=== PATIENT | female | born 1970 | race Caucasian/White ===

== ENCOUNTER 2017-03-23 10:12 | Inpatient (IN) ==
[2017-03-23] MEDS ORDERED: NITROGLYCERIN SL 0.4 MG TABLET SL PRN (10:49)
[2017-03-23] MEDS ORDERED: ASPIRIN 325 MG TABLET PO STA (10:49)
[2017-03-23] MEDS ORDERED: ENOXAPARIN 100 MG/ML SYRINGE SUBCUT STA (10:49)
[2017-03-23] MEDS ORDERED: NITROGLYCERIN 2% OINT 1 INCH/GM PACK TOP STA (10:49)
--- NOTE | 2017-03-23 10:52 | EKG Report ---
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
--- NOTE | 2017-03-23 10:56 | Emergency Department Note ---
Enrrique Frazier Brooke, am scribing for, and in the presence of, Tomy Felix MD 10:54 . Elvira Frazier James D, MD, personally performed the services described in this documentation, ascribed by Shraddha Osuna in my presence, and it is both accurate and complete . Arrival - Arrival Chief Complaint: Chest Pain Stated Complaint: chest pain ED Nursing Triage Note: pt c/o of chest tightness and heart flutters that started this morning. Having so pain in jaw that radiates to left arm. She was seen by her production planning supervisor yesterday and has plans for a holter monitor soon. Denies nausea/vomiting. Mode of Arrival: Stretcher Limitations: No Limitations Source: Patient, RN Notes Reviewed Time Seen by Provider: 03/23/17 10:44 - History of Present Illness HPI Narrative: Patient is a 46 year old female who presents to the ED with c/o chest tightness and palpitations. She says she was completely fine and then her heart started fluttering. She say she has had the fluttering, in the past, and says it usually goes away within a few minutes. However, after the first episode of fluttering, she says it started fluttering again. Patient says the chest tightness is located on the left side. The chest tightness is not worsened by exertion. She was given Nitro and she says it relieved the chest tightness but she still feels some tightness in her jaw and left arm. She also complains of nausea but denies any diaphoresis or calf pain. Patient's PCP referred Patient to a Tin Pot Operator, which she saw yesterday, for an abnormal EKG. She says the Tin Pot Operator is going to set up an appointment for an echocardiogram and stress test. She says the Tin Pot Operator mentioned putting her on a monitor due to a "slow heartbeat." Patient is a smoker and smokes about a pack of cigarettes a day. Onset (ago): unknown Allergies/Adverse Reactions: Allergies Allergy/AdvReac Type Severity Reaction Status Date / Time latex Allergy ANAPHYLAXIS Verified 03/23/17 11:09 Home Medications: Home Medications Medication Instructions Recorded Confirmed Type Aspirin EC Tab 81 mg PO DAILY 03/23/17 03/23/17 History Buspirone HCl 10 mg PO BID 03/23/17 03/23/17 History Fluoxetine HCl 10 mg PO DAILY 03/23/17 03/23/17 History hydroCHLOROthiazide 12.5 mg PO DAILY 03/23/17 03/23/17 History [Hydrochlorothiazide] Review of System - Review of System 12 point system: reviewed and no additional remarkable complaints except as stated - Review of System Constitutional: Absent: diaphoresis, fever Respiratory: Absent: respiratory distress Cardiovascular: Present: chest pain (tightness), palpitations Gastrointestinal: Present: nausea Skin: Absent: rash Exam Vital Signs: Vital Signs Temperature 98.2 F 03/23/17 11:17 Pulse Rate 68 03/23/17 11:17 Respiratory Rate 16 03/23/17 11:17 Blood Pressure 131/77 03/23/17 11:17 O2 Sat by Pulse Oximetry 100 03/23/17 10:34 GENERAL: This is a well-nourished well-developed white female in no apparent distress. VITAL SIGNS: Reviewed HEENT: Head is atraumatic and normocephalic. Pupils are equal round react to light. Extraocular movements are intact. Oropharynx is benign with moist mucous membranes. NECK: Neck is soft and supple without tenderness. There are no masses. There is no lymphadenopathy. LUNGS: Lungs are clear to auscultation. Chest rises symmetrically. There is no chest wall tenderness. CV: Heart is regular rate and rhythm without murmurs rubs or gallops. ABDOMEN: Abdomen is soft, nontender to palpation. There are no abdominal abnormal masses palpated. There is no organomegaly. Bowel sounds are present and active. SKIN: Skin is warm and dry. No rash. EXTREMITIES: Patient has full range of motion without tenderness. There is no pedal edema. NEUROLOGIC: Awake alert and oriented 4. Cranial nerves II through XII are grossly intact. Motor is 5 over 5 in all extremities bilaterally. Course - Consultations Consultation #1: Discussed with hospitalist. Patient will be admitted to their service. Time: 12:14 Results - Labs CBC & BMP: 03/23/17 10:29 03/23/17 10:29 Lab Results: I have reviewed the patients labs - EKG EKG results: interpreted by ERMD - Impressions EKG: Normal sinus rhythm with a rate of 62, normal ST-T waves, normal axis. - Diagnostic Findings Procedure: Chest x-ray: image reviewed by me (No pleural effusions, no infiltrates.) Disposition Clinical Impression: Chest pain Case discussed with: patient Condition: Stable
[2017-03-23 10:57] LABS: Basophils % 0.4 % (0.0-0.8); Eosinophils # 0.1 10*3/uL (0.0-0.87); Eosinophils % 1.1 % (0.00-10.9); Hematocrit 44.2 VOL% (35.7-47.0); Hemoglobin 15.2 GM/DL (12.0-16.0); Immature Granulocytes % 0.3 %; Immature Granulocytes Absolute 0.02 #; Lymphocytes # 1.4 10*3/uL (1.4-4.0); Lymphocytes % 19.8 % (21.3-54.2); Mean Corpuscular HGB Conc 34.4 GM/DL (32-36); Mean Corpuscular Hemoglobin 32 PG (27-34); Mean Platelet Volume 11.3 FL (9.6-12.0); Monocytes # 0.6 10*3/uL (0.11-0.8); Monocytes % 8.3 % (1.7-12.7); Neutrophils # 5.1 10*3/uL (1.4-7.4); Neutrophils % 70.1 % (38.7-73.9); Platelet Count 223 T/CUMM (130-400); Red Cell Distribution Width 11.9 % (9.3-17.3); White Blood Count 7.2 T/CUMM (4-12)
[2017-03-23] MEDS ORDERED: ENOXAPARIN 100 MG/ML SYRINGE SUBCUT ONE (10:58)
[2017-03-23] MEDS ORDERED: NITROGLYCERIN 2% OINT 1 INCH/GM PACK TOP ONE (10:58)
[2017-03-23] MEDS ORDERED: ASPIRIN 325 MG TABLET ONE (10:58)
[2017-03-23 11:02] LABS: Partial Thromboplastin Time 29.6 SECS (0-40)
--- NOTE | 2017-03-23 11:10 | XRay Report ---
XR chest 2V Date: 03/23/2017 10:49 AM History: Chest pain Comparison: None Technique: PA and lateral chest Findings: The heart is normal in size. Calcified granulomatous/nodes with no definite acute parenchymal findings. Minimal degenerative changes. Impression: No acute cardiopulmonary pathology identified. Old healed granulomatous disease. PROCEDURE INTERPRETED AT [facility] DEPARTMENT OF RADIOLOGY Final Report Signed by: Dr. Colleen Sands
[2017-03-23 11:20] LABS: Barbiturates Screen,Urine Negative (Negative); Benzodiazepines Screen,Urine Negative (Negative); Cannabinoid Screen,Urine Negative (Negative); Opiate Screen,Urine Negative (Negative); Phencyclidine Screen,Urine Negative (Negative)
[2017-03-23 11:21] LABS: Alanine Aminotransferase 27 U/L (13-56); Albumin 3.7 G/DL (3.4-5.0); Alkaline Phosphatase 70 U/L (45-117); Aspartate Amino Transferase 18 U/L (0-37); Bilirubin,Total < 0.39 MG/DL (0.2-1.0); Blood Urea Nitrogen 11 MG/DL (7-18); Glucose 86 MG/DL (74-106); Osmolality,Calculated 276.4 MOS/KG (273-304); Potassium 3.7 MMOL/L (3.5-5.1); Sodium 140 MMOL/L (136-145); Total Protein 7.1 G/DL (6.4-8.3)
--- NOTE | 2017-03-23 14:04 | EKG Report ---
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
[2017-03-23] MEDS ORDERED: ALUM/MAG/SIMETH/LIDO VISC 1:1 30 ML BOTTLE PO ONE (14:34)
--- NOTE | 2017-03-23 15:13 | EKG Report ---
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
[2017-03-23 15:18] LABS: Free T4 (Free Thyroxine) 1.03 NG/DL (0.76-1.46); Thyroid Stimulating Hormone 2.22 uIU/ml (0.358-3.74)
[2017-03-23] MEDS: PANTOPRAZOLE 40 MG TABLET PO SCH (15:47)
[2017-03-23] MEDS: NICOTINE 21 MG/24 HR PATCH TRANSDERM SCH (15:48)
--- NOTE | 2017-03-23 15:48 | Hospitalist History & Physical ---
<Umer Tamayo - Last Filed: 03/23/17 16:25> Assessment and Plan (1) Chest pain Status: Acute Assessment and plan: Will conduct cardiac work-up. we will consult cardiology to see since the patient was already seen by one for evaluation Current Visit: Yes (2) Nicotine addiction Status: Acute Assessment and plan: Discussed in great detail the importance of smoking cessation. Patient acknowledges the need to stop; however does not want to at this time. Will offer nicotine patch for hospital stay. Current Visit: Yes History of Present Illness Chief complaint: chest pain History of present illness: This is a very pleasant 46 year old female that presented to the ED at [facility] this afternoon for evaluation of chest tightness, tightness, and palpitations. The patient has a medical history significant for hypertension, nicotine addition, anxiety, and depression. The patient reported that she was going about her day and was completely fine when the onset of the above symptoms started. She reports incidents similar in nature; however they generally resolved moments after started; however this incident lasted started immediately after subsiding. In addition, she reports chest and jaw discomfort. She was recently seen by her PCP for a similar complaint and was referred to a estate manager. She was seen on yesterday and told that she would be scheduled for an echocardiogram and stress test at some point and time.She was evaluated and given nitroglycerin with minimal relief from the jaw and chest pain. Labs and chest radiograph were essentially unremarkable. Due to her presenting complaint and known risk factors; after brief discussion with Dr. Felix and Rhea, the patient will be admitted to the hospitalist service for continuation of care. Home Medications Medication Instructions Recorded Confirmed Type Aspirin EC Tab 81 mg PO DAILY@0700 03/23/17 03/23/17 History Buspirone HCl 10 mg PO 0700,1900 PRN 03/23/17 03/23/17 History Fluoxetine HCl 10 mg PO DAILY@0700 03/23/17 03/23/17 History hydroCHLOROthiazide 12.5 mg PO DAILY@0700 03/23/17 03/23/17 History [Hydrochlorothiazide] Allergies Allergy/AdvReac Type Severity Reaction Status Date / Time latex Allergy ANAPHYLAXIS Verified 03/23/17 11:09 Medical,Surgical,& Family Hx - Medical History Cardio: History of: Aneurysm (palpatations), Hypertension Psychological: History of: Anxiety Disorders, Depression - Family History Family History: Reports;: Family Hypertension - Social History Smoking Status: Current every day smoker Frequency of Alcohol Use: None Type of Drug Use: None 12 point system: reviewed and no additional remarkable complaints except as stated Exam - Constitutional Vitals: Period Temp Pulse Resp BP Sys/Duff Pulse Ox Last 24 Hr 98 F 59-60 17-18 96-121/58-74 97-97 General appearance: normal weight, no acute distress - Head Head exam: Present: normal inspection, normocephalic, atraumatic - Eye Eye exam: Present: EOMI. Absent: conjunctival injection Pupils: Present: MP, normal accommodation - ENT ENT exam: Present: normal exam, normal external ear exam, normal oropharynx - Neck Neck exam: Present: normal inspection. Absent: lymphadenopathy, meningismus, tenderness, thyromegaly - Respiratory Respiratory exam: Present: clear to auscultation bilaterally. Absent: rales, rhonchi, stridor, wheezes - Cardiovascular Cardiovascular exam: Present: bradycardia. Absent: carotid bruit, diastolic murmur, gallop, irregular rhythm, JVD, rubs, systolic murmur - GI/Abdominal GI/Abdominal exam: Present: normal bowel sounds, soft. Absent: distended, firm , guarding, mass, tenderness - Extremities Exam Extremities exam: Present: normal inspection, normal capillary refill, full ROM. Absent: calf tenderness, edema - Back Exam Back exam: Present: normal inspection - Neurological Exam Neurological exam: Present: alert, oriented X3, CN II-XII intact - Psychiatric Psychiatric exam: Present: flat affect - Skin Skin exam: Present: normal color, warm, dry Results - Labs CBC & BMP: 03/23/17 10:29 03/23/17 10:29 Lab Results: I have reviewed the past 24 hour labs <Eleonora Rolon - Last Filed: 03/23/17 16:56> History of Present Illness History of present illness: Ms. Nix is a 46 year old female with a history of HTN who is here for chest pain and flutter. She had an Echo and Cardiology consult set up for Wednesday next week prior to this event. Telemetry cardiac enzymes TSH, T4, A1c, Lipids Nicpotine patch, UA Echo, Cardiology consult ASA, lovenox. Exam - Constitutional Vitals: Period Temp Pulse Resp BP Sys/Duff Pulse Ox Last 24 Hr 98 F-98.4 F 59-63 17-18 96-121/58-74 97-98 Results - Labs CBC & BMP: 03/23/17 10:29 03/23/17 10:29
--- NOTE | 2017-03-23 17:59 | ECHO Report ---
[facility] Exam Date: 03/23/2017 16:49 Referring Physician: Technologist: Carolyne Miranda VARUN Age: 46 Ht (in): 64 Wt (lb): 152 Gender: F Exam Location: Indications: BP: 113 / 70 HR: 63 Rhythm: Sinus Technical Quality: Fair IMPRESSIONS Normal left ventricular size, systolic function and wall thickness, with no regional wall motion abnormalities. EF 60 %. Normal right ventricular size and systolic function. Normal right atrial size. Normal left atrial size. No mitral valve regurgitation. The aortic valve is trileaflet and has normal motion. No aortic valve regurgitation. Mild tricuspid valve regurgitation. PAP30 mmHg. Pulmonic valve not well visualized. No pericardial effusion. Normal aorta. MEASUREMENTS (Male / Female) Normal Values FINDINGS Left Ventricle Normal left ventricular size, systolic function and wall thickness, with no regional wall motion abnormalities. EF 60 %. Right Ventricle Normal right ventricular size and systolic function. Right Atrium Normal right atrial size. Left Atrium Normal left atrial size. Mitral Valve Morphologically normal mitral valve. No mitral valve regurgitation. Aortic Valve The aortic valve is trileaflet and has normal motion. No aortic valve regurgitation. Tricuspid Valve Morphologically normal tricuspid valve. Mild tricuspid valve regurgitation. PAP30 mmHg. Pulmonic Valve Pulmonic valve not well visualized. Pericardium No pericardial effusion. Aorta Normal aorta. Kirby Monroy (Electronically Signed) Final Date: 23 Mar 2017 17:58
[2017-03-23] MEDS: ENOXAPARIN 40 MG/0.4 ML SYRINGE SUBCUT SCH (21:50)
[2017-03-23] MEDS: busPIRone 10 MG TABLET PO SCH (21:50)
[2017-03-24 08:08] LABS: Basophils % 0.6 % (0.0-0.8); Eosinophils # 0.1 10*3/uL (0.0-0.87); Eosinophils % 2.4 % (0.00-10.9); Hematocrit 43.6 VOL% (35.7-47.0); Hemoglobin 14.6 GM/DL (12.0-16.0); Immature Granulocytes % 0.4 %; Immature Granulocytes Absolute 0.02 #; Lymphocytes # 1.9 10*3/uL (1.4-4.0); Lymphocytes % 37.1 % (21.3-54.2); Mean Corpuscular HGB Conc 33.5 GM/DL (32-36); Mean Corpuscular Hemoglobin 32 PG (27-34); Mean Corpuscular Volume 94.6 FL (87-102); Mean Platelet Volume 11.3 FL (9.6-12.0); Monocytes # 0.5 10*3/uL (0.11-0.8); Monocytes % 9.9 % (1.7-12.7); Neutrophils # 2.5 10*3/uL (1.4-7.4); Neutrophils % 49.6 % (38.7-73.9); Platelet Count 213 T/CUMM (130-400); Red Blood Count 4.61 MC/CUMM (3.8-5.5); Red Cell Distribution Width 12.2 % (9.3-17.3); White Blood Count 5.1 T/CUMM (4-12)
[2017-03-24 08:34] LABS: Alanine Aminotransferase 24 U/L (13-56); Albumin 3.2 G/DL (3.4-5.0); Alkaline Phosphatase 57 U/L (45-117); Aspartate Amino Transferase 17 U/L (0-37); Bilirubin,Total < 0.39 MG/DL (0.2-1.0); Blood Urea Nitrogen 13 MG/DL (7-18); Calcium 8.7 MG/DL (8.5-10.1); Glucose 86 MG/DL (74-106); Magnesium 2.1 MG/DL (1.8-2.4); Osmolality,Calculated 277.4 MOS/KG (273-304); Phosphorous 2.7 MG/DL (2.5-4.9); Potassium 4.2 MMOL/L (3.5-5.1); Sodium 140 MMOL/L (136-145); Total Protein 6.2 G/DL (6.4-8.3)
--- NOTE | 2017-03-24 09:05 | Hospitalist Progress Note ---
<Umer Tamayo - Last Filed: 03/24/17 09:03> Assessment and Plan (1) Chest pain Status: Acute Assessment and plan: Will conduct cardiac work-up. we will consult cardiology to see since the patient was already seen by one for evaluation. 03/24-Cardiology to assess this AM; possible heart cath this AM. Current Visit: Yes (2) Nicotine addiction Status: Acute Assessment and plan: Discussed in great detail the importance of smoking cessation. Patient acknowledges the need to stop; however does not want to at this time. Will offer nicotine patch for hospital stay. Current Visit: Yes Hospitalist: Subjective Interval history: Patient seen and examined. Reports several episodes of chest pain on last night. NPO pending Cardiology evaluation. Exam - Constitutional Vitals: Period Temp Pulse Resp BP Sys/Duff Pulse Ox Last 24 Hr 96.5 F-98.4 F 59-68 17-20 96-127/58-75 97-99 General appearance: normal weight, no acute distress - Head Head exam: Present: normal inspection, normocephalic, atraumatic - Eye Eye exam: Present: EOMI. Absent: conjunctival injection, nystagmus Pupils: Present: MP, normal accommodation. Absent: constricted - ENT ENT exam: Present: normal exam, normal external ear exam, normal oropharynx - Neck Neck exam: Present: normal inspection. Absent: lymphadenopathy, meningismus, tenderness, thyromegaly - Respiratory Respiratory exam: Present: clear to auscultation bilaterally. Absent: rales, rhonchi, stridor, wheezes - Cardiovascular Cardiovascular exam: Present: regular rate and rhythm. Absent: carotid bruit, diastolic murmur, gallop, JVD, rubs, systolic murmur - GI/Abdominal GI/Abdominal exam: Present: normal bowel sounds, soft. Absent: distended, firm , guarding - Extremities Exam Extremities exam: Present: normal inspection, normal capillary refill, full ROM , edema. Absent: calf tenderness - Back Exam Back exam: Present: normal inspection - Neurological Exam Neurological exam: Present: alert, oriented X3, CN II-XII intact - Psychiatric Psychiatric exam: Present: normal affect, normal mood - Skin Skin exam: Present: normal color, warm, dry Results - Labs CBC & BMP: 03/24/17 07:49 03/24/17 07:49 Lab Results: I have reviewed the past 24 hour labs <Sam Hollins - Last Filed: 03/24/17 12:29> Hospitalist: Subjective Interval history: Patient seen and examined independently of BRIGETTE Tamayo, agree with assessment and plan as documented. Reports chest pain yesterday evening relieved with nitro. Cardiology to evaluate today. Exam - Constitutional Vitals: Period Temp Pulse Resp BP Sys/Duff Pulse Ox Last 24 Hr 96.5 F-98.4 F 59-73 17-20 96-130/58-75 97-99 Results - Labs CBC & BMP: 03/24/17 07:49 03/24/17 07:49
[2017-03-24] MEDS: NICOTINE 21 MG/24 HR PATCH TRANSDERM SCH (09:44)
[2017-03-24] MEDS: hydroCHLOROthiazide 12.5 MG CAPSULE PO SCH (09:44)
[2017-03-24] MEDS: busPIRone 10 MG TABLET PO SCH ×2 (09:44→21:14)
[2017-03-24] MEDS: FLUoxetine 10 MG CAPSULE PO SCH (09:44)
[2017-03-24] MEDS: ASPIRIN EC 81 MG TABLET PO SCH (09:44)
[2017-03-24] MEDS: PANTOPRAZOLE 40 MG TABLET PO SCH (09:44)
[2017-03-24 12:29] LABS: VLDL CHOLESTEROL 9.6 MG/DL
--- NOTE | 2017-03-24 14:03 | Event Note ---
Underwent cardiolyte exercise stress testing this morning without complaints of chest pain, heaviness, tightness, or shortness of breath. No syncope or presyncope. Full Marcio protocol met with THR achieved. Clinically and electrically negative stress test. Less than 1mm ST depression noted anteriorly with resolution during recovery phase. Blood pressure remained stable throughout procedure. Now, patient will transition to nuclear medicine for final scan. Dr. White to read, interpreted and advise.
--- NOTE | 2017-03-24 16:13 | Cardiology Consult Note ---
Nik Frazier Vanessa, RN, am scribing for, and in the presence of, Alvarado White MD 16:13. 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 CLIVE TOM S, [place]) PCP: ANNA GLASS ([place]) Ms. Nix is a 46 year old white female not routinely followed by cardiology. Risk factors include: Hypertension, tobaccoism, and positive family history. Past medical history also includes anxiety and depression. Patient presented to [facility] the afternoon of 03/23 complaining of palpitations and chest tightness. No associated shortness of breath, N/V, diaphoresis. EKG negative for acute ischemic finding, chest x-ray without acute process, and lab work revealed negative cardiac enzymes. Patient was admitted to telemetry per hospital medicine for further evaluation and treatment. Cardiology consulted for evaluation also. Patient was recently evaluated by [employer] in [place], and she tells me she sought treatment because she noticed an increase in swelling of her legs and felt the left leg to be more swollen on the right leg. An EKG was obtained at that visit , she was reportedly told it was abnormal, and was referred to a curriculum writer. Patient was evaluated by curriculum writer in [place] on 03/22, and patient reports she was told she would be set up for echocardiogram and/or stress testing. She also reports she was told by the curriculum writer that her heartbeat was regular but "slow" and may require holter monitoring in the future. Patient reports she has been experiencing "heart fluttering" for the past 2-3 years, but she feels it is happening more frequently now. Reports that yesterday she was in her usual state of health and was carrying on a conversation with someone when she felt sudden onset of heart fluttering that resolved in approximately 1 minute, but a few minutes later heart fluttering returned. Reports that this episode lasted for approximately 3 minutes, and she had some chest pressure with some pain in the left side of her neck. Reports she does experience some shortness of breath with this at times. There were no aggravating or alleviating factors. Patient describes her chest pressure and palpitations as "feels like all the blood in my heart is stopped up for a minute and then it finally opens up and goes to my head." She does admit to smoking cigarettes, 1 pack per day, and at this time she is not interested in quitting. Echocardiogram with normal LV function and ejection fraction 60%, no significant valvular disease, mild TR with PA pressure 30 mmHg. Patient describes palpitations. Her noninvasive evaluation is negative for evidence of significant organic heart abnormality. our plan will be to discharge her with a Holter monitor to return for review. CC: Sam Hollins MD - Home Medications and Allergies Home Medications: Home Medications Medication Instructions Recorded Confirmed Type Aspirin EC Tab 81 mg PO DAILY@0700 03/23/17 03/23/17 History Buspirone HCl 10 mg PO 0700,1900 PRN 03/23/17 03/23/17 History Fluoxetine HCl 10 mg PO DAILY@0700 03/23/17 03/23/17 History hydroCHLOROthiazide 12.5 mg PO DAILY@0700 03/23/17 03/23/17 History [Hydrochlorothiazide] Allergies/Adverse Reactions: Allergies Allergy/AdvReac Type Severity Reaction Status Date / Time latex Allergy ANAPHYLAXIS Verified 03/23/17 11:09 - Constitutional Constitutional: Present: as per HPI - EENT Eyes: Present: as per HPI Ears: Present: as per HPI - Cardiovascular Cardiovascular: Present: as per HPI - Respiratory Respiratory: Present: as per HPI - Gastrointestinal Gastrointestinal: Present: as per HPI - Genitourinary Genitourinary: Present: as per HPI - Musculoskeletal Musculoskeletal: Present: as per HPI - Neurological Neurological: Present: as per HPI - Psychiatric Psychiatric: Present: as per HPI - Endocrine Endocrine: Present: as per HPI - Hematologic/Lymphatic Hematologic/Lymphatic: Present: as per HPI Medical,Surgical,& Family Hx - Medical History Cardio: History of: Aneurysm (palpatations), Hypertension No history of: CHF, CAD, [place], Pacemaker, PVD, Valvular Heart Disease Psychological: History of: Anxiety Disorders, Depression Neurology: No history of: Seizures, TIA Endocrine: No history of: Diabetes Mellitus (IDDM), Diabetes Mellitus (NIDDM), Dyslipidemia, Thyroid Disorder Respiratory: No history of: Bronchitis, COPD, Obstructive Sleep Apnea, Pulmonary Hypertension Renal: No history of: Renal Problems Gastrointestinal: No history of: Gastrointestinal Bleed Hematology: No history of: Anemia Other: No history of: Cancer - Surgical History Cardiac Surgeries: Patient Denies: Cardiac Catheterization, Cardiac Surgery, Internal Defibrillator - Family History Family History: Reports;: Family Heart Disease, Family Hypertension - Social History Smoking Status: Current every day smoker Time spent discussing smoking cessation with patient: more than 10 minutes Frequency of Alcohol Use: None Type of Drug Use: None Marital Status: Lives With:: Spouse Functional capacity: independent ambulation Physical Examination Vital Signs Temp Pulse Resp BP Pulse Ox 98.2 F 68 16 131/77 100 03/23/17 10:34 03/23/17 10:34 03/23/17 10:34 03/23/17 10:34 03/23/17 10:34 General: Present: Appears Well, No Apparent Distress HEENT: Present: Normocephaly, Mucus Membranes Moist. Absent: Pallor, Oral Lesions Neck: Present: Supple Neck, Midline Trachea, No JVD/HJR, No Bruit Cardiac: Present: Reg Rate and Rhythm. Absent: Systolic Murmur Lungs: Present: Clear Ascult./Percussion, No Wheeze, Rales, Rhonchi. Absent: Oxygen Neuro: Present: Grossly Intact. Absent: Numbness, Tingling, Resting Tremor, Essential Tremor Abdomen: Present: Soft, Active Bowel Sounds, No Masses, No Pulsations/Bruits. Absent: Ascites, Tender, Firm Skin: Present: Clear. Absent: Rash, Suspicious Lesions Musculoskeletal: Present: No Fluid Collection, Normal Range of Motion Extremities: Present: No Clubbing, No Cyanosis, Normal Upper Extr. Pulses (3+ bilaterally), Normal Lower Extr. Pulses (3+ bilaterally), Edema (Trace pretibial ), Capillary Refill (Normal) Result/EKG - Labs CBC & BMP: 03/24/17 07:49 03/24/17 07:49 Lab Results: I have reviewed the past 24 hour labs Labs: Laboratory Results - last 24 hr 03/23/17 03/23/17 03/23/17 14:12 14:12 15:19 WBC RBC Hgb Hct MCV MCH MCHC RDW Plt Count MPV Neut % (Auto) Lymph % (Auto) Teller % (Auto) Eos % (Auto) Baso % (Auto) Neut # (Auto) Lymph # (Auto) Teller # (Auto) Eos # (Auto) Baso # (Auto) Immature Gran % Nucleated RBC % Immature Gran # Nucleated RBCs # D-Dimer, Quantitative <= 0.5 Sodium Potassium Chloride Carbon Dioxide Anion Gap BUN Creatinine GFR Calculation BUN/Creatinine Ratio Glucose Calculated Osmolality Calcium Phosphorus Magnesium Total Bilirubin AST ALT Alkaline Phosphatase Troponin I < 0.015 Total Protein Albumin Globulin Albumin/Globulin Ratio Free T4 1.03 TSH 3rd Generation 2.220 03/23/17 03/24/17 03/24/17 17:04 07:49 07:49 WBC 5.1 RBC 4.61 Hgb 14.6 Hct 43.6 MCV 94.6 MCH 32 MCHC 33.5 RDW 12.2 Plt Count 213 MPV 11.3 Neut % (Auto) 49.6 Lymph % (Auto) 37.1 Teller % (Auto) 9.9 Eos % (Auto) 2.4 Baso % (Auto) 0.6 Neut # (Auto) 2.5 Lymph # (Auto) 1.9 Teller # (Auto) 0.5 Eos # (Auto) 0.1 Baso # (Auto) 0.0 Immature Gran % 0.4 Nucleated RBC % 0.0 Immature Gran # 0.02 Nucleated RBCs # 0.00 D-Dimer, Quantitative Sodium 140 Potassium 4.2 Chloride 106 Carbon Dioxide 29 Anion Gap 9.2 BUN 13 Creatinine 1.00 GFR Calculation 68 BUN/Creatinine Ratio 13.00 Glucose 86 Calculated Osmolality 277.4 Calcium 8.7 Phosphorus 2.7 Magnesium 2.1 Total Bilirubin < 0.39 AST 17 ALT 24 Alkaline Phosphatase 57 Troponin I < 0.015 Total Protein 6.2 L Albumin 3.2 L Globulin 3.0 Albumin/Globulin Ratio 1.0 L Free T4 TSH 3rd Generation - Diagnostic Findings Procedure: Chest x-ray: image reviewed by me, report reviewed by me - EKG EKG results: interpreted by me, no acute changes EKG shows: sinus rhythm Christopher Frazier Wesley, MD, personally performed the services described in this documentation, ascribed by Jennifer Zaragoza RN in my presence, and it is both accurate and complete 613 .
[2017-03-24] MEDS: ENOXAPARIN 40 MG/0.4 ML SYRINGE SUBCUT SCH (21:14)
--- NOTE | 2017-03-24 21:54 | Nuclear Medicine Report ---
DATE: 03/24/2017 PROCEDURE: Exercise nuclear study. The patient underwent treadmill testing using a modified Marcio protocol and walked 6 minutes and 44 seconds on modified Marcio protocol target heart rate of 153, which was 87% of maximal age-predicated heart rate. Blood pressure response to exercise was normal. There were no EKG changes or symptoms consistent with ischemia noted. At peak exercise, the patient was given a 30-mCi dose of Technetiu m complexed to Cardiolite. She underwent radionuclide scanning. This was compared to a rest scan o btained prior to exercise after a 10-mCi dose of Technetium complexed to Cardiolite. There were no symptoms or EKG changes consistent with ischemia. Comparing stress and rest imaging, there appears to be homogeneous uptake of radiotracer through all myocardial segments. No good evidence to suggest significant ischemia or scar can be noted from th is perfusion study. Wall motion study demonstrates normal left ventricular systolic wall motion. Gated ejection fractio n is calculated to be in 75% range. CONCLUSIONS: 1. PERFUSION STUDY WITHOUT GOOD EVIDENCE TO SUGGEST SIGNIFICANT ISCHEMIA OR SCAR WITH DECREASED COU NTS IN THE ANTERIOR WALL LIKELY RELATED TO ATTENUATION. 2. THIS IS A CONCORDANT FINDING. 3. NORMAL LEFT VENTRICULAR SYSTOLIC WALL MOTION. 4. GATED EJECTION FRACTION IS IN THE 75% RANGE. Procedure performed and interpreted at [facility] Department of Radiology.
--- NOTE | 2017-03-25 07:17 | Discharge Summary ---
<Umer Tamayo - Last Filed: 03/25/17 07:18> Hospital Course - Hospital Course Hospital Course: This is a very pleasant 46 year old female that presented to the ED at [facility] 03/23 for evaluation of chest tightness, tightness, and palpitations. The patient has a medical history significant for hypertension, nicotine addition, anxiety, and depression. The patient reported that she was going about her day and was completely fine when the onset of the above symptoms started. She reported incidents similar in nature; however they generally resolved moments after started; however this incident lasted started immediately after subsiding. In addition, she reports chest and jaw discomfort. She was recently seen by her PCP for a similar complaint and was referred to a senior linux systems administrator. She was seen on yesterday and told that she would be scheduled for an echocardiogram and stress test at some point and time. She was evaluated and given nitroglycerin with minimal relief from the jaw and chest pain. Labs and chest radiograph were essentially unremarkable. Due to her presenting complaint and known risk factors; after brief discussion with Dr. Felix and Rhea, the patient was admitted to the hospitalist service for continuation of care. A cardiology consult was requested; the patient was seen and evaluated. On 03/24 , the patient underwent a myocardial perfusion imaging scan which was essentially unremarkable and reported an ejection fraction of 75%. Her condition has remained stable. Today, we feel that she is appropriate for discharge home to follow-up with her PCP and cardiology for holter monitor. Diagnosis - Discharge Diagnosis (1) Chest pain Status: Acute (2) Nicotine addiction Status: Chronic Discharge Plan - Discharge Medications Continue Fluoxetine HCl 10 mg PO DAILY@0700 Buspirone HCl 10 mg PO 0700,1900 PRN PRN Reason: Anxiety Aspirin EC Tab 81 mg PO DAILY@0700 hydroCHLOROthiazide [Hydrochlorothiazide] 12.5 mg PO DAILY@0700 - Follow Up or Referral - Forms/Instructions Exam - Constitutional Vitals: Period Temp Pulse Resp BP Sys/Duff Pulse Ox Last 24 Hr 96.5 F-98.9 F 51-73 16-20 105-130/52-74 97-99 Discharge Results Labs on day of discharge: Labs from last 24 hours 03/24/17 03/24/17 03/24/17 07:49 07:49 07:49 WBC 5.1 RBC 4.61 Hgb 14.6 Hct 43.6 MCV 94.6 MCH 32 MCHC 33.5 RDW 12.2 Plt Count 213 MPV 11.3 Neut % (Auto) 49.6 Lymph % (Auto) 37.1 [place] % (Auto) 9.9 Eos % (Auto) 2.4 Baso % (Auto) 0.6 Neut # (Auto) 2.5 Lymph # (Auto) 1.9 [place] # (Auto) 0.5 Eos # (Auto) 0.1 Baso # (Auto) 0.0 Immature Gran % 0.4 Nucleated RBC % 0.0 Immature Gran # 0.02 Nucleated RBCs # 0.00 Sodium 140 Potassium 4.2 Chloride 106 Carbon Dioxide 29 Anion Gap 9.2 BUN 13 Creatinine 1.00 GFR Calculation 68 BUN/Creatinine Ratio 13.00 Glucose 86 Calculated Osmolality 277.4 Calcium 8.7 Phosphorus 2.7 Magnesium 2.1 Total Bilirubin < 0.39 AST 17 ALT 24 Alkaline Phosphatase 57 Total Protein 6.2 L Albumin 3.2 L Globulin 3.0 Albumin/Globulin Ratio 1.0 L Triglycerides 48 Cholesterol 192 LDL Cholesterol 125.0 VLDL Cholesterol 9.6 HDL Cholesterol 48 Heart Disease Risk Ratio 4.00 DS: Provider Date of admission: 03/23/17 12:36 Primary care physician: . No PCP Attending physician on admission: Eleonora Rolon MD Consults: 03/23/17 14:35 Consult to Physician [CONS] Routine Comment: Consulting Provider: Alvarado White Consult to Specialist Group: Cardiology Person Notified: Neetu Date Notified: 03/23/17 Time Notified: 14:30 Discharging clinician: Umer Tamayo CNP <Sam Hollins - Last Filed: 03/25/17 08:15> Hospital Course - Hospital Course Hospital Course: Patient seen and examined independently of BRIGETTE Tamayo, agree with hospital course as documented. 46 y/o WF smoker admitted with chest pain. Cardiology was consulted. Perfusion scan unremarkable. She has now reached maximum benefit of inpatient stay and will be discharged home. - Time spent with patient Time with patient DS: Less than 30 minutes Diagnosis - Discharge Diagnosis (1) Chest pain Status: Resolved (2) Nicotine addiction Status: Chronic Discharge Plan - Discharge Data Condition at Discharge: Stable Discharge Diet: advance to your usual diet Activity: increase activity as tolerated Hygiene: no restrictions Weight Bearing at Discharge: weight bear as tolerated Driving: no restrictions Contact your physician if you experience:: Shortness of breath, pain uncontrolled by pain medications Exam - Constitutional General appearance: normal weight - Head Head exam: Present: normocephalic, atraumatic - Eye Eye exam: Present: EOMI Pupils: Present: MP - ENT ENT exam: Present: normal exam - Neck Neck exam: Present: normal inspection - Respiratory Respiratory exam: Present: clear to auscultation bilaterally - Cardiovascular Cardiovascular exam: Present: regular rate and rhythm - GI/Abdominal GI/Abdominal exam: Present: normal bowel sounds, soft. Absent: tenderness, rebound - Extremities Exam Extremities exam: Present: normal inspection - Back Exam Back exam: Present: normal inspection - Neurological Exam Neurological exam: Present: alert, oriented X3 - Psychiatric Psychiatric exam: Present: normal affect, normal mood - Skin Skin exam: Present: warm, intact
[2017-03-25 08:06] VITALS: BP 122/64
[2017-03-25] MEDS: ASPIRIN EC 81 MG TABLET PO SCH (09:42)
[2017-03-25] MEDS: hydroCHLOROthiazide 12.5 MG CAPSULE PO SCH (09:43)
[2017-03-25] MEDS: FLUoxetine 10 MG CAPSULE PO SCH (09:43)
[2017-03-25] MEDS: busPIRone 10 MG TABLET PO SCH (09:43)
[2017-03-25] MEDS: NICOTINE 21 MG/24 HR PATCH TRANSDERM SCH (09:43)
[2017-03-25] MEDS: PANTOPRAZOLE 40 MG TABLET PO SCH (09:43)
== END 2017-03-25 11:55 | disposition home or self-care (01) | DRG 313 ==
LOC: N.ED 10:12 → SUATTDRO 12:36 → N.EDINP 12:36 → N.TELES 14:21
PROVIDERS: ADMIT Internal Medicine; ATTEND Internal Medicine